=== PATIENT | male | born 1925 | race Caucasian/White ===

== ENCOUNTER 2016-10-04 12:31 | Observation (INO) | payer MEDICARE, BC ==
--- NOTE | 2016-10-04 17:29 | ED.PDOC ---
History of Present Illness - General Chief Complaint: Back Pain or Injury Stated Complaint: low back discomfort Time Seen by Provider: 10/04/16 12:36 Source: patient, family Exam Limitations: clinical condition - History of Present Illness Initial Comments: Patient presents with back pain for three days. He had a fall three days ago and got a lumbar x-ray but today it progressed to where he could not get up. His called EMS. Pain is upper lumbar, constant, sharp, non-radiating, + previous episodes. Has had incontinence today. Worse with movement, better with rest. Timing/Duration: other - 3 days Severity: severe Improving Factors: rest Worsening Factors: movement Associated Symptoms: denies symptoms Allergies/Adverse Reactions: Allergies Codeine Allergy (Unknown, Verified 10/04/16 13:10) Diazepam [From Valium] Allergy (Unknown, Verified 10/04/16 13:10) Fexofenadine [From Aida] Allergy (Unknown, Verified 10/04/16 13:10) Prednisone Allergy (Unknown, Verified 10/04/16 13:10) Home Medications: Ambulatory Orders Aspirin [Aspirin Adult Low Dose] 81 mg PO BEDTIME 01/01/16 Atorvastatin Calcium [Lipitor] 40 mg PO BEDTIME 01/01/16 Calcium Carbonate-Vitamin D [Calcium 600+D 600-400 mg-Unit] 1 tab PO DAILY 12/31 Carisoprodol 350 mg PO BEDTIME PRN 01/01/16 Chlorpheniramine Maleate 4 mg PO DAILY PRN 01/01/16 Donepezil HCl [Aricept] 5 mg PO DAILY 01/01/16 Finasteride [Proscar] 5 mg PO DAILY 01/01/16 Wzrfesdhzcn-Lpibipfqzvw-Hcv C- [Glucosamine Chondroitin] 1 cap PO BID 01/01/16 Pioglitazone HCl [Actos] 30 mg PO DAILY 01/01/16 Amiodarone HCl 200 mg PO BEDTIME 07/24/16 Cyclobenzaprine HCl 5 mg PO Q8HRS PRN #10 tab 07/24/16 Ferrous Gluconate [Fergon] 240 mg PO BID 07/24/16 Propranolol HCl 60 mg PO DAILY 07/24/16 Warfarin Sodium [Coumadin] 2 mg PO SUTUTHSA 07/24/16 Warfarin Sodium [Coumadin] 4 mg PO MOWEFR 07/24/16 Review of Systems - Review of Systems Constitutional: States: no symptoms reported EENTM: States: no symptoms reported Respiratory: States: no symptoms reported Cardiology: States: no symptoms reported Gastrointestinal/Abdominal: States: no symptoms reported Genitourinary: States: no symptoms reported Musculoskeletal: States: see HPI Skin: States: no symptoms reported Neurological: States: no symptoms reported Endocrine: States: no symptoms reported Hematologic/Lymphatic: States: no symptoms reported Past Medical History (General) - Patient Medical History Hx Seizures: No Hx Stroke: No Hx Dementia: No Hx Asthma: No Hx of COPD: No Hx Cardiac Disorders: Yes - Hx DVT Hx Congestive Heart Failure: No Hx Pacemaker: No Hx Hypertension: Yes Hx Thyroid Disease: No Hx Diabetes: Yes Hx Gastroesophageal Reflux: No - Hx IBS - requiring ileostomy 1998 Hx Renal Disease: No Hx Cancer: No Hx of HIV: No Hx Hepatitis C: No Hx MRSA: No - Vaccination History Hx Influenza Vaccination: Yes - 2015 Hx Pneumococcal Vaccination: Yes - 2016 - Social History Hx Tobacco Use: No Hx Alcohol Use: No Hx Substance Use: No Hx Substance Use Treatment: No Hx Depression: No Family Medical History - Family History Mother Family History: No Known Living Status: Physical Exam - Physical Exam General Appearance: Alert Ears, Nose, Throat: normal ENT inspection Neck: non-tender, full range of motion, supple Respiratory: lungs clear Cardiovascular/Chest: regular rate, rhythm Gastrointestinal/Abdominal: normal bowel sounds, non tender, soft Back Exam: vertebral tenderness - TTP over upper lumbar and lower thoracic vertebrae Extremity: other - Pain with flexion of the hip. Positive straight and cross- leg raises. Neurologic: no motor/sensory deficits DTR: 4+: Patellar, left, Patellar, right Skin Exam: normal color Lymphatic: no adenopathy Progress - Progress Progress: 10/04/16 17:31 Patient refused pain medications. CT showed acute fracture of the body of T11. Patient admitted for ambulatory insufficiency and will likely get an MRI in the morning. Departure - Departure Clinical Impression: Fracture of thoracic spine Disposition: Admit Patient Condition: Good Departure Forms: ED Discharge - Pt. Copy, Patient Portal Self Enrollment Diet: resume usual diet Activity: as per physical therapy Home Medications: Ambulatory Orders Aspirin [Aspirin Adult Low Dose] 81 mg PO BEDTIME 01/01/16 Atorvastatin Calcium [Lipitor] 40 mg PO BEDTIME 01/01/16 Calcium Carbonate-Vitamin D [Calcium 600+D 600-400 mg-Unit] 1 tab PO DAILY 12/31 Carisoprodol 350 mg PO BEDTIME PRN 01/01/16 Chlorpheniramine Maleate 4 mg PO DAILY PRN 01/01/16 Donepezil HCl [Aricept] 5 mg PO DAILY 01/01/16 Finasteride [Proscar] 5 mg PO DAILY 01/01/16 Sfynpdawltu-Adptemfypts-Oqn C- [Glucosamine Chondroitin] 1 cap PO BID 01/01/16 Pioglitazone HCl [Actos] 30 mg PO DAILY 01/01/16 Amiodarone HCl 200 mg PO BEDTIME 07/24/16 Cyclobenzaprine HCl 5 mg PO Q8HRS PRN #10 tab 07/24/16 Ferrous Gluconate [Fergon] 240 mg PO BID 07/24/16 Propranolol HCl 60 mg PO DAILY 07/24/16 Warfarin Sodium [Coumadin] 2 mg PO SUTUTHSA 07/24/16 Warfarin Sodium [Coumadin] 4 mg PO MOWEFR 07/24/16
[2016-10-04] MEDS ORDERED: KETOROLAC TROMETHAMINE INJ 30 MG/ML VIAL IM ONE (19:35)
[2016-10-04] MEDS ORDERED: KETOROLAC TROMETHAMINE INJ 30 MG/ML VIAL ONE (19:39)
--- NOTE | 2016-10-04 21:08 | HP ---
SUPERVISING PHYSICIAN: Carlos Bee MD CHIEF COMPLAINT: Low back pain. HISTORY OF PRESENT ILLNESS: Mr. Ritter is an 89-year-old, male patient that sustained a same level fall approximately a week previous to admission today. He notes he was getting up from his bed to go turn his alarm system on and fell against he wall, landing on his rear end. He noted he had a little pain in his back at that time, but did not seek any medical attention and just took a few Aleve and other vidm-sxs-srglijk pain medications. Today, the pain progressively worsened where he could not get up and his called EMS. He noted the pain was in his upper limb, constant, sharp, and nonradiating. In the Emergency Department, x-ray of his lumbar spine was completed. CT of his lumbar spine was completed and per radiology interpretation demonstrated mild acute appearing compression fracture deformity at T11. The patient actually refused pain medicine in the Emergency Department , but is unable to actually get out of bed without maximum assist secondary to the pain. He and his both area in their late 80s and she is unable to fully take care of him at this point. The patient will be admitted now for further treatment and evaluation as he is unable to ambulate without assistance and is a very high risk for falls. We will plan to get a consultation with orthopedic services with Dr. Hart in the morning and manage his pain. He was placed in observation in stable condition. PAST MEDICAL HISTORY: 1. Hypertension. 2. Mild dementia. 3. Benign prostatic hypertrophy. 4. 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 5. Type 2 diabetes mellitus on oral therapy. PAST SURGICAL HISTORY: 1. Ileostomy 17 years previously secondary to complications from irritable bowel syndrome. 2. Hernia repair as a young child. 3. Tonsils and adenoids. 4. Cholecystectomy. 5. Appendectomy. CURRENT MEDICATIONS: 1. Warfarin 4 mg Hsirub-Mvpfuiguw-Ccvfjo. 2. Warfarin 2 mg Krqlcz-Ewnalil-Xgxrbpqs-Wednesday. 3. Propranolol 60 mg daily. 4. Actos 30 mg daily. 5. Glucosamine 1 capsule twice daily. 6. Proscar 5 mg daily. 7. Fergon 240 mg twice daily. 8. Aricept 5 mg daily. 9. Cyclobenzaprine 5 mg q. 8h. as needed. 10. Chlorpheniramine maleate 4 mg daily as needed. 11. Carisoprodol 350 mg at bedtime as needed. 12. Calcium supplement 1 tablet daily. 13. Lipitor 40 mg at bedtime. 14. Aspirin low dose 81 mg at bedtime. 15. Amiodarone 200 mg at bedtime. ALLERGIES: CODEINE, DIAZEPAM, FEXOFENADINE, PREDNISONE. FAMILY HISTORY: Significant for diabetes mellitus. 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 He is . He lives in [place]. He has never smoked and he does not drink alcohol or use illicit drugs. REVIEW OF SYSTEMS: CONSTITUTIONAL Denies fevers, chills, or unintentional weight loss. HEENT: Denies earaches, sore throat, rhinorrhea, or nasal congestion. RESPIRATORY: Denies shortness of breath, cough, hemoptysis. CARDIOVASCULAR: Denies chest pain, palpitations or syncopal episodes. GASTROINTESTINAL: Denies complications of ileostomy or abdominal pain. GENITOURINARY: He does have a history of benign prostatic hypertrophy, but has no current complaints of any dysuria or difficulty with urination or other urinary symptoms. MUSCULOSKELETAL: As noted in history of present illness, pain to his low back. NEUROLOGIC: Denies syncopal episodes, incontinence, headaches, dizziness. PHYSICAL EXAMINATION: VITAL SIGNS: Temperature 98.0. Pulse 52. Blood pressure 138/72. Kqopetfsxfqp81. Saturation 96% on room air at rest. Admission weight 279.3 kg. HEENT: Tympanic membranes clear bilaterally. Oropharynx is pink, moist without any lesions. NECK: No jugular venous distention noted. CHEST: Lungs clear to auscultation bilaterally without any rhonchi, wheezes, or rales. CARDIOVASCULAR: Regular rate and rhythm without any appreciable murmurs, gallops, or rubs. ABDOMEN: Soft, nontender. Positive bowel sounds. Ileostomy bag is in place with ostomy appearing to be pink and healthy with green, liquid stool present in the bag. BACK: There is vertebral tenderness with palpation over the upper lumbar and lower thoracic vertebrae. EXTREMITIES: He is able to move all extremities ad leonor. He does have some pain in his back with flexion of hip and also has positive straight and cross- leg raise exam. NEUROLOGIC: Cranial nerves II-XII are grossly intact. Facial features are symmetrical. Extraocular movements are within normal limits. There is no nystagmus noted. 4+ bilateral patellar reflexes. INTEGUMENT: Skin warm and dry without any lesions or rashes. LABORATORY: CBC shows hemoglobin 10.7, hematocrit 33.1, white count 7.3, platelet count 224,000. Differential within normal limits. Coagulation studies shows PT elevated at 50.6 with INR 4.55. Chemistries show normal electrolytes with BUN 16, creatinine 0.94, glucose 129, calcium 8.1. Liver functions within normal limits. Urinalysis pending. RADIOLOGY: CT of lumbar spine per radiology interpretation shows mild compression fracture with deformity at T11 which was not noted on previous study. The fracture does appear to be acute. There are no mention of any significant spinal foraminal stenosis. There is also note of multilevel degenerative changes, most pronounced at L4-L5 and probable small bladder stones. Please refer to final results for full details. ASSESSMENT: 1. Acute T11 compression fracture status post same level fall with no significant spinal or foraminal stenosis as noted on CT by radiology. 2. Severe low back pain resulting in inability to ambulate without full assist, secondary to #1, requiring aggressive pain control, not able to fully complete in outpatient setting secondary to limited resources at home with a who is unable to assist the patient. 3. Type 2 diabetes mellitus, on oral therapy. 4. Hypertension. 5. History of benign prostatic hypertrophy. 6. History of ileostomy after colectomy. 7. History of deep venous thromboses with previous Marshall filter placement and currently on chcf warfarin therapy. PLAN: The patient will be placed in observation tonight for additional pain control and further monitoring of the patient neurologically. We will plan to get a physical therapy consultation in the morning as well as consult with Dr. Hart, if possible, in regards to further treatment and recommendations given the patient's injury. Anticipate discharge tomorrow with outpatient treatment base on findings from physical therapy and orthopedics. We will start the patient's home medicines back once they are verified. We will plan to hold his warfarin tomorrow as he is above therapeutic levels with his INR. We will recheck an INR in the morning. Until discharge, we will continue to monitor the patient closely and treat appropriately. #[id number] [facility]
[2016-10-04] MEDS ORDERED: IV SET AND CAP CHANGE INJ INJ SCH (22:00)
[2016-10-04] MEDS ORDERED: SODIUM CHLORIDE 0.9% (FLUSH) 10 ML SYG IV PRN (22:00)
[2016-10-04] MEDS ORDERED: ACETAMINOPHEN 325 MG TAB PO PRN (22:05)
[2016-10-04] MEDS ORDERED: ONDANSETRON INJ 4 MG/2 ML VIAL IV PRN (22:05)
[2016-10-04] MEDS ORDERED: MORPHINE SULFATE INJ 10 MG/ML VIAL IV PRN (22:05)
[2016-10-04] MEDS ORDERED: DEXTROSE 50% 25 GM/50 ML SYG IV PRN (22:05)
[2016-10-04] MEDS ORDERED: GLUCAGON INJ 1 MG VIAL SUBCU PRN (22:05)
[2016-10-04] MEDS ORDERED: CYCLOBENZAPRINE HCL 5 MG TAB PO PRN (22:07)
[2016-10-04] MEDS ORDERED: CARISOPRODOL 350 MG TAB PO PRN (22:07)
[2016-10-05] MEDS ORDERED: SODIUM CHLORIDE 0.9% 10 ML VIAL IV PRN (07:16)
[2016-10-05] MEDS ORDERED: CYCLOBENZAPRINE HCL 5 MG TAB PO PRN (07:17)
[2016-10-05] MEDS: INSULIN LISPRO 100 UNITS/ML PEN SUBCU SCH ×4 (07:55→21:07)
[2016-10-05] MEDS: PIOGLITAZONE 15 MG TAB PO SCH (10:02)
[2016-10-05] MEDS: FERROUS GLUCONATE 325 MG TAB PO SCH ×2 (10:02→20:35)
[2016-10-05] MEDS: DONEPEZIL HCL 5 MG TAB PO SCH (10:03)
[2016-10-05] MEDS: FINASTERIDE 5 MG TAB PO SCH (10:03)
[2016-10-05] MEDS: SODIUM CHLORIDE 0.9% (FLUSH) 10 ML SYG IV SCH ×2 (10:03→20:35)
[2016-10-05] MEDS: HYDROcodone 5MG/APAP 325MG 1 EA TAB PO PRN ×2 (10:28→16:41)
[2016-10-05] MEDS: PROPRANOLOL HCL 20 MG TAB PO SCH (11:19)
--- NOTE | 2016-10-05 13:40 | CONS ---
DATE OF CONSULTATION: 10/05/16 CHIEF COMPLAINT: Low back pain. HISTORY OF PRESENT ILLNESS: Mr. Ritter is an 89-year-old male with a history of a fall about one week ago. He fell backwards and actually hit his back and landed down on his buttocks. He had the acute onset of pain in the low back at that time. He did not seek immediate treatment, but his subsequently called EMS. He complains of pain only in the low back without radiation and has no neurologic symptoms. He has no other injury associated with this fall. PAST MEDICAL HISTORY: 1. Hypertension. 2. Dementia. 3. Benign prostatic hypertrophy. 4. Deep venous thrombosis. 5. Diabetes. PAST SURGICAL HISTORY: 1. Ileostomy. 2. Herniorrhaphy. 3. Tonsillectomy. 4. Cholecystectomy. 5. Appendectomy. ALLERGIES: CODEINE, DIAZEPAM, FEXOFENADINE, PREDNISONE. MEDICATIONS: 1. Warfarin. 2. Propranolol. 3. Actos. 4. Proscar. 5. Fergon. 6. Aricept. 7. Cyclobenzaprine. 8. Chlorpheniramine. 9. Carisoprodol. 10. Calcium. 11. Lipitor. 12. Amiodarone. SOCIAL HISTORY: The patient does not drink, smoke or use any illicit drugs. FAMILY HISTORY: None pertinent to today's complaint. REVIEW OF SYSTEMS: Negative except as indicated in the History of Present Illness. PHYSICAL EXAMINATION: VITAL SIGNS: Blood pressure 138/72. Respirations 18. O2 saturation 96%. Weight approximately 160. MENTAL STATUS: The patient is awake, alert, and is able to give a good history and participate in the physical. The patient is oriented to person, place and time. SKIN: Normal tone and turgor. HEENT: Normocephalic, atraumatic. Pupils equal, round and reactive. Mucosal membranes are moist. NECK: Normal range of motion. No thyromegaly, no lymphadenopathy. CHEST: Normal respiratory excursion. CARDIAC: Regular rate and rhythm. No murmurs, rubs or gallops. MUSCULOSKELETAL: Bilateral upper extremities show full active, painless range of motion. He has intact sensation in the extremities and they are warm and well perfused. There is no deformity. Bilateral lower extremities show full range of motion and he has only got some minor pain in the lumbar region with range of motion. Sensation is intact throughout the extremities. They are warm and well perfused. He has no deformity to the extremities. IMAGING: CT scan shows very minimal compression on the anterior body of T11. Otherwise, there is no retropulsion of any fragments. There is no compression and no other abnormality other than advanced arthritis of the spine. ASSESSMENT: 1. Vertebral fracture. PLAN: The fracture is stable and there does not appear to be any significant compression. That said, he is having difficulty weightbearing fully without discomfort. To that end, I have suggested a TLSO. We are going to order that for him and I think he should refrain from doing ambulation until that time. #[id number] [facility]
--- NOTE | 2016-10-05 18:30 | PCM.CORE ---
Physician DVT/VTE - Prophylaxis Currently: Patient already on anticoagulation therapy - Nurse DVT Assessment & Total Each Risk Factor Represents 3 Points: Age over 75 years, Hx of DVT/PE Each Risk Factor Represents 2 Points: Confined to bed >72 hours Each Risk Factor Represents 1 Point: Medical PT at Bed Rest DVT Assessment Score: 9 - 5 or more Very High Risk Treatments: Early Ambulation *, Sequential Compression Device Pharmacological: Warfarin daily
[2016-10-05] MEDS ORDERED: ATORVASTATIN 20 MG TAB PO SCH (21:00)
[2016-10-05] MEDS ORDERED: ASPIRIN EC 81 MG TAB PO SCH (21:00)
[2016-10-05] MEDS ORDERED: AMIODARONE HCL 200 MG TAB PO SCH (21:00)
[2016-10-06] MEDS: INSULIN LISPRO 100 UNITS/ML PEN SUBCU SCH ×3 (07:30→16:56)
--- NOTE | 2016-10-06 08:05 | PN ---
SUPERVISING PHYSICIAN: Vahe Ramírez MD DATE: 10/05/16 SUBJECTIVE: The patient remains in bed. He has been comfortable. He is not requesting pain medicine. He remains afebrile. Dr. Hart has seen the patient in consultation. OBJECTIVE: VITAL SIGNS: Temperature 96.7. Pulse 50. Blood pressure 130/73. O2 saturation 95% on room air at rest. I&Os show a balance of 0, 200 in, 200 out. GENERAL: The patient appears to be in no distress, resting comfortably. CHEST: Lungs clear to auscultation bilaterally. HEART: Regular rate and rhythm. ABDOMEN: Soft, nontender. Positive bowel sounds. EXTREMITIES: No cyanosis, clubbing or edema. NEUROLOGIC: Alert and oriented times three. LABORATORY: No additional laboratory studies today other than blood sugars which range from 86 to 208. RADIOLOGY: No additional radiographic studies today. ASSESSMENT: 1. Acute T11 vertebral fracture status post same level fall with no significant spinal or foraminal stenosis as noted on CT by radiology and no neurologic deficits on exam. 2. Severe low back pain resulting in inability to ambulate without full assist, requiring aggressive pain management as well as bedrest, awaiting a TLSO, needing complete bedrest per orthopedic recommendation and having the patient continue through possible rehab once discharged as the patient has limited resources at home with his who is unable to assist the patient. 3. Type 2 diabetes mellitus, on oral therapy. 4. Hypertension. 5. History of benign prostatic hypertrophy. 6. History of ileostomy after colectomy. 7. History of deep venous thromboses with previous [place] filter placement and currently on group home warfarin therapy. PLAN: The patient will continue on bedrest as he is having difficulty continuing to weightbear without significant discomfort. The patient is being fitted for a TLSO and we will refrain from doing ambulation until brace is in place as per recommendation of Dr. Hart. Until brace is available, the patient will be closely monitored and treated appropriately. #[id number] [facility]
[2016-10-06] MEDS: HYDROcodone 5MG/APAP 325MG 1 EA TAB PO PRN (08:44)
[2016-10-06] MEDS: FINASTERIDE 5 MG TAB PO SCH (09:06)
[2016-10-06] MEDS: FERROUS GLUCONATE 325 MG TAB PO SCH (09:07)
[2016-10-06] MEDS: PIOGLITAZONE 15 MG TAB PO SCH (09:07)
[2016-10-06] MEDS: DONEPEZIL HCL 5 MG TAB PO SCH (09:07)
[2016-10-06] MEDS: PROPRANOLOL HCL 20 MG TAB PO SCH (09:09)
[2016-10-06 10:38] VITALS: O2SAT 96
[2016-10-06] MEDS: SODIUM CHLORIDE 0.9% (FLUSH) 10 ML SYG IV SCH (12:11)
[2016-10-06 15:49] VITALS: BP 157/79; TEMP 97.1
--- NOTE | 2016-10-07 13:46 | CT ---
PROCEDURE: Lumbar Spine CLINICAL HISTORY: 89 years ,Male ,low back pain, incontinence COMPARISON: CT abdomen and pelvis study from 08/20/2013. TECHNIQUE: Contiguous axial images obtained through the lumbar spine without IV contrast. Coronal and sagittal reformatted images obtained. FINDINGS: There is mild compression fracture deformity at T11 which was not visualized on the previous study. This fracture appears acute. Correlation with point tenderness recommended. The bones appear osteopenic. Mild curvature in the lumbar spine convex right. Vertebral body alignment appears unremarkable. Multilevel degenerative changes. T10-11, minimal posterior osteophytes and minimal retropulsion of the superior endplate at T11. There is no significant spinal or foraminal stenosis. T11-T12, minimal posterior osteophytes and mild degenerative changes in the facets. No significant spinal or foraminal stenosis. T12-L1 through L2-3, mild degenerative changes without significant spinal or foraminal stenosis. L3-4: Small posterior osteophytes and degenerative changes of the facets. No significant spinal or foraminal stenosis. L4-5: Small posterior osteophytes with disc bulging. Hypertrophic degenerative change of the facets. Mild spinal stenosis. Moderate left neural foraminal stenosis. Severe right neural foraminal stenosis. L5-S1: Small posterior osteophytes. Hypertrophic degenerative change of the facets. No significant spinal stenosis. Mild bilateral neural foraminal stenosis. Probable small pleural effusions with atelectatic changes. Atherosclerotic calcifications. IVC filter is visualized. Hyperdense material in the posterior urinary bladder which could represent small bladder stones. Changes from left hip arthroplasty. IMPRESSION: Mild acute appearing compression fracture deformity at T11. Multilevel degenerative changes most pronounced at L4-5. Probable small bladder stones. Electronically signed by: Jamie Estrada MD 10/04/2016 1:51 PM [employer]
--- NOTE | 2016-10-12 17:28 | DS ---
SUPERVISING PHYSICIAN: Alex Ramírez M.D. DISCHARGE DIAGNOSIS: 1. Stable fracture of the anterior body of T11 with minimal compression noted. 2. Severe low back pain resulting in the inability to ambulate without full assistance secondary to number 1. 3. Diabetes mellitus type 2 on oral therapy. 4. Hypertension. 5. History of benign prostatic hypertrophy. 6. History of ileostomy and colectomy. 7. History of deep venous thrombosis with previous Shantanu filter placement and currently on retirement Warfarin therapy. HISTORY OF PRESENT ILLNESS: This is an 89 year-old male patient that was admitted to the hospital due to a stable T11 fracture of the anterior body. He had fallen 1 week prior to his admission. He was getting up from his bed to turn on his alarm system and he fell against the wall and landed on his rear end. He had a very small amount of pain at that time and did not seek any medical attention, but on the date of admission he was unable to get out of bed and it worsened to the point that he could not ambulate. 911 was called and he was brought to the hospital. The pain was constant, sharp and nonradiating. X- ray of his spine was completed as well as a CT of the lumbar spine and the radiology interpretation consisted of mild, acute-appearing compression fracture deformity at T11. In the Emergency Room, he was unable to get up out of bed without maximum assistance secondary to the pain. The patient was admitted for pain control as well as he had difficulty ambulating without assistance as well as high risk for a fall. Dr. Hart was consulted. HOSPITAL COURSE: Dr. Hart evaluated the patient and found that it was a stable fracture of the anterior body of T11 and he ordered a brace. The brace is presently on order and it will need to be fitted especially given the fact that he does have an ileostomy and the fitting will need to be accounted for that. On pain medications, the patient did quite well as well as he was able to get up and move about. There was some concern that he could not leave the hospital without the use of the brace. Dr. Hart said that the brace was mainly for the patient's comfort measures and he would be able to transfer use his walker for ambulation. Physical Therapy found him to need minimal assistance other than the walker for transfers or ambulation. He did need additional assistance with his supine to sitting position. At this point, his pain is very well controlled. We are awaiting the back brace. I have called Home Health and he is to be discharged home today. His INR on discharge was 3.5. DISCHARGE PLAN: He will see Dr. Diaz on 10/13/16 for hospital followup. He has also received some Hydrocodone for pain. [facility] has been instructed to see the patient several times before he sees Dr. Diaz and they will assist with the fitting of his brace as well as involving Physical Therapy. The patient is presently on Coumadin and will need a PT and INR when he has a followup with Dr. Diaz. He is to resume his previous diet. Increase his activity as per Physical Therapy. Followup with Dr. Diaz or return to the hospital if he has any further complaints. Dr. Diaz's office can get in touch with Dr. Hart's office if he needs a followup with Dr. Hart. Otherwise he will be discharged home in stable condition. DISCHARGE MEDICATIONS: 1. Lipitor. 2. Risperdal. 3. Aspirin. 4. Actos. 5. Donepezil. 6. Chlorpheniramine Maleate. 7. Finasteride. 8. Calcium and Vitamin D. 9. Glucosamine. 10. Amiodarone. 11. Warfarin. 12. Targon. 13. Propranolol. 14. Cyclobenzaprine. 15. Hydrocodone. Dr. Ramírez is the supervising physician and available for consultation. #[id number] [facility]
== END 2016-10-06 17:30 | disposition home health service (06) ==
LOC: ER 12:31 → INTOOBSV 21:06 → MS 21:06
PROVIDERS: ADMIT Nurse Practitioner Family; ATTEND Nurse Practitioner Acute Care
DX: S22.088A Other fracture of T11-T12 vertebra, initial encounter for closed fracture (principal); M54.5 Low back pain; I10 Essential (primary) hypertension; F03.90 Unspecified dementia, unspecified severity, without behavioral disturbance, psychotic disturbance, mood disturbance, and anxiety; N40.0 Benign prostatic hyperplasia without lower urinary tract symptoms; E11.9 Type 2 diabetes mellitus without complications; M47.816 Spondylosis without myelopathy or radiculopathy, lumbar region; W18.39XA Other fall on same level, initial encounter; Y92.003 Bedroom of unspecified non-institutional (private) residence as the place of occurrence of the external cause; Z79.01 Long term (current) use of anticoagulants; Z79.84 Long term (current) use of oral hypoglycemic drugs; Z79.899 Other long term (current) drug therapy; Z88.6 Allergy status to analgesic agent; Z88.8 Allergy status to other drugs, medicaments and biological substances; Z86.718 Personal history of other venous thrombosis and embolism; Z93.2 Ileostomy status; Z90.49 Acquired absence of other specified parts of digestive tract; Z83.3 Family history of diabetes mellitus
CPT/HCPCS: 36415 ×2; 36416 ×9; 72131; 80048; 80053; 81001; 82948 ×9; 85025 ×2; 85610 ×2; 94760; 97116; 97161; 97530; G0378; G8978; G8979; J1815; J1885

== ENCOUNTER → 2016-10-27 | Outpatient (CLI) | payer MEDICARE, BC | END | disposition home or self-care (01) | LOC: GRHH 11:47 | PROVIDERS: ATTEND Family Medicine | DX: I10 Essential (primary) hypertension (principal); E78.2 Mixed hyperlipidemia ==

== ENCOUNTER → 2016-11-02 | Outpatient (CLI) | payer MEDICARE, BC ==
--- NOTE | 2016-11-02 12:10 | RAD ---
EXAM DESCRIPTION: Pelvis CLINICAL HISTORY: PAIN IN RIGHT HIP, PAIN IN LEFT HIP FINDINGS/ IMPRESSION: Right hip: Nonspherical femoral head neck junction. Posterior inferior acetabular osteophyte ridge. Subchondral cystic change superior lateral rim of the acetabulum. 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 No fracture of the pelvis Electronically signed by: Alex Baker MD 11/02/2016 11:59 AM CDT
--- NOTE | 2016-11-02 12:56 | RAD ---
EXAM DESCRIPTION: Thoracic spine, 3 views CLINICAL HISTORY: T11 compression fracture seen on previous CT FINDINGS/ IMPRESSION: Anterior wedge compression fracture deformity of T11 with approximately 50% loss of vertebral body height. 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
== END | disposition home or self-care (01) ==
LOC: RAD 10:29
PROVIDERS: ATTEND Orthopaedic Surgery
DX: M48.54XA Collapsed vertebra, not elsewhere classified, thoracic region, initial encounter for fracture (principal); M25.551 Pain in right hip

== ENCOUNTER → 2017-01-14 | Outpatient (CLI) | payer MEDICARE, BC | END | disposition home or self-care (01) | LOC: GMAH 13:41 | PROVIDERS: ATTEND Family Medicine | DX: Z51.81 Encounter for therapeutic drug level monitoring (principal) ==

== ENCOUNTER → 2017-02-02 | Outpatient (CLI) | payer MEDICARE, BC | LOC: GRHH 09:58 | PROVIDERS: ATTEND Family Medicine | DX: I10 Essential (primary) hypertension (principal); D51.0 Vitamin B12 deficiency anemia due to intrinsic factor deficiency; I48.91 Unspecified atrial fibrillation; Z51.81 Encounter for therapeutic drug level monitoring ==

== ENCOUNTER → 2017-03-08 | Outpatient (CLI) | payer MEDICARE, BC ==
--- NOTE | 2017-03-09 09:00 | CT ---
EXAM DESCRIPTION: Abdomen w/o Contrast CLINICAL HISTORY: GENERALIZED ABDOMEN PAIN (RUQ) COMPARISON: CT chest without contrast 07/24/2016. CT abdomen and pelvis with contrast 08/20/2013. TECHNIQUE: Spiral-axial scans at 5.0 mm intervals through the abdomen. Coronal and sagittal 2.0 mm reconstructions. No IV or oral contrast. Total DLP: 390.91 mGy - cm. This exam was performed according to our departmental dose-optimization program which includes automated exposure control, adjustment of the mA and/or kV according to patient size and/or use of iterative reconstruction technique; to reduce radiation dose to as low as reasonably achievable (ALARA). FINDINGS: Lung bases and pleura: Chronic scarring atelectasis bilateral bases with large focal parenchymal scar in the posterior recess on the right. Chronic pleural thickening bilaterally. Upper Abdominal organs: Calcifications again noted in the spleen. Normal density and size of the liver. Normal density and size of the adrenal glands. Pancreas/Gallbladder/Ducts: Fatty infiltration of the pancreas. Gallbladder has been resected with surgical clips in the gallbladder fossa no fluid. Kidneys: Calcifications are noted in the medullary cortical junction of the bilateral kidneys. 1 cm cyst on the lateral upper pole left kidney. Smaller cyst, similar location right kidney. 1 cm cyst lateral lower pole is stable. No hydronephrosis or perinephric fluid bilaterally. Mesentery: Minimal stranding around the ileostomy which is stable. No ascites in the abdomen. Aorta: Atherosclerotic calcification. 2.2 x 2.1 cm at the L3 level. At the same level is a IVC filter. [place] is at the level of the entrance of the renal vein. Inferior struts are outside the lumen at the level of the L3-4 disc space. This is stable. Stomach: Not distended. Small Bowel: Not distended. No wall thickening at any level including the ileostomy. Fecal material distal and in the stoma. Terminal Ileum/Cecum: Not seen. Colon: Not seen. Spine: Spondylosis at multiple levels. Old stable compression fracture at T11. No significant retropulsion. Dextroscoliosis thoracolumbar and levoscoliosis lumbosacral. Abdominal Wall/Back Soft Tissues: Stable right anterior abdominal wall defect for ileostomy. IMPRESSION: 1. Ileostomy stable. Stable fatty stranding around the ileostomy. No small bowel obstruction. No free fluid in the abdomen are included pelvis. 2. 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 Stable position of IVC filter. 3. Mild bilateral medullary nephrocalcinosis. Bilateral renal cysts. No hydronephrosis. Stable since chest CT scan July 2016. 4. 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 Electronically signed by: Yovany Rivera MD 03/09/2017 8:58 AM CDT
== END | disposition home or self-care (01) ==
LOC: CT 08:36
PROVIDERS: ATTEND Family Medicine
DX: R10.84 Generalized abdominal pain (principal); E83.59 Other disorders of calcium metabolism; N29 Other disorders of kidney and ureter in diseases classified elsewhere

== ENCOUNTER → 2017-05-03 | Outpatient (CLI) | payer MEDICARE, BC | LOC: GRHH 10:38 | PROVIDERS: ATTEND Family Medicine | DX: I10 Essential (primary) hypertension (principal); E11.9 Type 2 diabetes mellitus without complications; I48.91 Unspecified atrial fibrillation; L97.509 Non-pressure chronic ulcer of other part of unspecified foot with unspecified severity ==

== ENCOUNTER → 2017-08-02 | Outpatient (CLI) | payer MEDICARE, BC | END | disposition home or self-care (01) | LOC: GRHH 10:39 | PROVIDERS: ATTEND Family Medicine | DX: I10 Essential (primary) hypertension (principal); Z51.81 Encounter for therapeutic drug level monitoring; E11.9 Type 2 diabetes mellitus without complications; Z79.2 Long term (current) use of antibiotics ==